=== PATIENT | male | born 1950 | race Caucasian/White ===

== ENCOUNTER 2019-03-05 14:36 | Inpatient (IN) | payer MEDICARE, BC ==
[~2019-03-05] VITALS: Ht 177.8 cm; Wt 113.6 kg
[~2019-03-05 14:36] MED LIST: ADV25050 INH; ADV25050 INHALATION; ALBU8.5H8 INH; AMLO2.5T78 PO; ASC500 PO; ASPI-817 PO; ASPI-903 PO; ATOR40TA68 PO; BENA10TA4 PO; BENA5TAB33 PO; CHOL100062 PO; CHOL200056 PO; CYAN200014 PO; CYAN500T46 PO; FLUT1BLS INH; IPRA3AMP29 INHALATION; LEVA0.634 INHALATION; LEVA15HF6 INH; MESA1.2T PO; MESA1.2T2 PO; METO-335 PO; MONT10TA24 PO; MULT-105 PO; MULT-542 PO; OXYC-279 PO; OXYC1TAB6 PO; PANT40TA3 PO; PANT40TA4 PO; SIMV40TA3 PO; TIOT18CA INH; UMEC62.5 IH
[2019-03-05 14:45] VITALS: Ht 177.8 cm; Wt 113.6 kg
[2019-03-05] MEDS ORDERED: ALBUTEROL 0.083% (NEB) 2.5 MG/3 ML AMP HHN STA (15:55)
[2019-03-05] MEDS ORDERED: METHYLPREDNISOLONE 125 MG INJ IV ONE (16:00)
[2019-03-05] MEDS ORDERED: IPRATROPIUM (NEB) 0.5 MG/2.5 ML AMP INH ONE (16:00)
[2019-03-05] MEDS ORDERED: ACETAMINOPHEN 325 MG TAB PO PRN ×2 (17:30→18:30)
[2019-03-05] MEDS ORDERED: ONDANSETRON 4 MG INJ IV PRN ×2 (17:30→18:30)
--- NOTE | 2019-03-05 17:44 | ERD ---
ER Documentation Chief Complaint Chief Complaint sent by pcp - productive cough with whitish thick sputum; low saturation HPI Patient is a 69-year-old male with coronary disease and COPD who presents for COPD exacerbation. The patient was sent by Dr. Pang his print project manager for admission. The patient was seen in the office today and had an oxygen saturation of 87%. He was wheezing. He does not use home oxygen. Symptoms started on February 11 after a viral infection which is gotten worse. The patient has shortness of breath and cough. His was sick as well previously. Upon review of old medical records the patient one previous visit to the ER on April 2017. Dr. Vasquez is his primary doctor. ROS All systems reviewed and are negative except as per history of present illness. Medications Home Meds Reported Medications Cholecalciferol (Vitamin D3) (Vitamin D-3) 2,000 Unit Tablet, 4000 UNIT PO Q NOON, TAB 03/05/19 Ascorbic Acid (Vitamin C) 500 Mg Tab, 1000 MG PO QAM, TAB 03/05/19 Cyanocobalamin (Vitamin B-12) (Vitamin B-12) 2,000 Mcg Tablet, 2000 MCG PO QAM, TAB 03/05/19 Metoprolol Succinate* (Toprol XL*) 25 Mg Tab.sr.24h, 25 MG PO QHS, #30 TAB 03/05/19 Montelukast Sodium* (Montelukast Sodium*) 10 Mg Tablet, 10 MG PO QHS, #30 TAB 03/05/19 Levalbuterol Hcl* (Levalbuterol Hcl*) 0.63 Mg/3 Ml Vial.neb, 0.63 MG INHALATION Q8, VIAL 03/05/19 Pantoprazole* (Protonix*) 40 Mg Tablet.dr, 40 MG PO DAILY, TAB 03/05/19 Oxycodone HCl/Acetaminophen (Percocet 5-325 mg Tablet) 1 Each Tablet, 0.5 TAB PO BID, TAB 03/05/19 Multivitamin with Minerals (Multivitamins with Minerals) 1 Each Tablet, 1 EACH PO QAM, TAB 03/05/19 Benazepril Hcl* (Benazepril Hcl*) 10 Mg Tablet, 10 MG PO DAILY, #30 TAB 03/05/19 Atorvastatin* (Atorvastatin*) 40 Mg Tablet, 40 MG PO QHS, #30 TAB 03/05/19 Mesalamine (Lialda) 1.2 Gm Tablet.dr, 1.2 GM PO WITH MEALS 03/05/19 Ipratropium-Albuterol (Ipratropium-Albuterol) 0.5-3 Mg/3 Ml Ampul.neb, 3 ML INHA LATION Q8H, #30 VIAL 03/05/19 Umeclidinium [place] (Incruse Ellipta) 62.5 Mcg Blst.w.dev, 62.5 MCG IH QHS 03/05/19 Aspirin* (Aspirin* EC) 81 Mg Tablet.dr, 81 MG PO DAILY, TAB 03/05/19 Salmeterol Xinaf/Fluticasone* (Advair*) 250-50 Diskus Inhaler, 1 INH INHALATION BID, #1 INHALER 03/05/19 Discontinued Reported Medications Levalbuterol Hcl* (Levalbuterol Hcl*) 0.63 Mg/3 Ml Vial.neb, 0.63 MG INHALATION Q8 PRN for WHEEZING AND SOB, VIAL 04/18/17 Ascorbic Acid (Vitamin C) 500 Mg Tab, 1000 MG PO QAM, TAB 04/18/17 Cholecalciferol* (Vitamin D3*) 1,000 Unit Tablet, 2000 UNIT PO DAILY, TAB 04/18/17 Cyanocobalamin* (Vitamin B12*) 500 Mcg Tab, 500 MCG PO DAILY, TAB 04/18/17 Metoprolol Succinate* (Toprol XL*) 25 Mg Tab.sr.24h, 25 MG PO DAILY, #30 TAB 04/18/17 Montelukast Sodium* (Montelukast Sodium*) 10 Mg Tablet, 10 MG PO QHS, #30 TAB 04/18/17 Albuterol Sulfate* (Proair HFA*) 8.5 Gm Hfa.aer.ad, 2 PUFF INH Q6H PRN for WHEEZING AND SOB, #1 INHALER 04/18/17 Pantoprazole* (Protonix*) 40 Mg Tablet.dr, 40 MG PO AC BREAKFAST, TAB 04/18/17 Oxycodone Hcl-Acetaminophen* (Oxycodone Hcl-Acetaminophen*) 2.5-325 Mg Tablet, 1 TAB PO BID PRN for SEVERE PAIN LEVEL 7-10, TAB 04/18/17 Multivitamin* (Daily Value*) 1 Each Tablet, 1 TAB PO DAILY, TAB 04/18/17 Benazepril Hcl* (Benazepril Hcl*) 5 Mg Tablet, 5 MG PO DAILY, #30 TAB 04/18/17 Atorvastatin* (Atorvastatin*) 40 Mg Tablet, 40 MG PO QHS, #30 TAB 04/18/17 Mesalamine (Lialda) 1.2 Gm Tablet.dr, 1.2 GM PO AC MEALS AND BEDTIME 04/18/17 Aspirin* (Aspirin* EC) 81 Mg Tablet.dr, 81 MG PO DAILY, TAB 04/18/17 Salmeterol Xinaf/Fluticasone* (Advair*) 250-50 Diskus Inhaler, 1 INH INHALATION BID, #1 INHALER 04/18/17 Allergies Allergies: Coded Allergies: No Known Allergy (Unverified , 03/05/19) PMhx/Soc History of Surgery: Yes (STENTS;EX LAP WITH ASTOMISIS OF COLON;COLYCEYECTOMY;) Anesthesia Reaction: No Hx Neurological Disorder: No Hx Respiratory Disorders: Yes (COPD) Hx Cardiac Disorders: Yes (STENTS) Hx Psychiatric Problems: No Hx Miscellaneous Medical Probl: No Hx Alcohol Use: Yes Hx Substance Use: No Hx Tobacco Use: Yes Smoking Status: Light tobacco smoker FmHx Family History: diabetes Physical Exam Vitals Vital Signs Date Temp Pulse Resp B/P (MAP) Pulse Ox O2 O2 Flow FiO2 Time Delivery Rate 03/05/19 72 19 127/93 98 Nasal 2.0 17:04 (104) Cannula 03/05/19 65 19 Nasal 2.0 96 16:22 Cannula 03/05/19 Nasal 2 16:10 Cannula 03/05/19 97.9 75 28 119/75 92 14:45 (90) Physical Exam Const: No acute distress Head: Atraumatic Eyes: Normal Conjunctiva ENT: Normal External Ears, Nose and Mouth. Neck: Full range of motion. No meningismus. Resp: Diffuse expiratory wheezing Cardio: Regular rate and rhythm, no murmurs Abd: Soft, non tender, non distended. Normal bowel sounds Skin: No petechiae or rashes Back: No midline or flank tenderness Ext: No cyanosis, or edema Neur: Awake and alert Psych: Normal Mood and Affect Result Diagram: 03/05/19 1606 03/05/19 1606 Results 24 hrs Laboratory Tests Test 03/05/19 16:06 03/05/19 16:08 White Blood Count 6.0 10^3/ul Red Blood Count 4.82 10^6/ul Hemoglobin 14.9 g/dl Hematocrit 46.7 % Mean Corpuscular Volume 96.9 fl Mean Corpuscular Hemoglobin 30.9 pg Mean Corpuscular Hemoglobin Concent 31.9 g/dl Red Cell Distribution Width 13.1 % Platelet Count 187 10^3/UL Mean Platelet Volume 10.5 fl Immature Granulocytes % 0.500 % Neutrophils % 61.8 % Lymphocytes % 20.1 % Monocytes % 12.3 % Eosinophils % 4.3 % Basophils % 1.0 % Nucleated Red Blood Cells % 0.0 /100WBC Immature Granulocytes # 0.030 10^3/ul Neutrophils # 3.7 10^3/ul Lymphocytes # 1.2 10^3/ul Monocytes # 0.7 10^3/ul Eosinophils # 0.3 10^3/ul Basophils # 0.1 10^3/ul Nucleated Red Blood Cells # 0.0 10^3/ul Sodium Level 141 mmol/L Potassium Level 5.1 mmol/L Chloride Level 100 mmol/L Carbon Dioxide Level 34 mmol/L Anion Gap 7 Blood Urea Nitrogen 20 mg/dl Creatinine 0.84 mg/dl Est Glomerular Filtrat Rate mL/min > 60 mL/min Glucose Level 98 mg/dl Calcium Level 9.1 mg/dl POC Venous Lactate 1.2 mmol/L Current Medications Medications Dose Sig/Claudette Start Time Status Last (Trade) Ordered Route PRN Stop Time Admin Dose Reason Admin Albuterol 5 mg ONCE STAT 03/05/19 DC 03/05/19 (Proventil HHN 15:55 03/05/19 16:21 0.083% (Neb)) 15:56 Ipratropium 0.5 mg ONCE ONCE 03/05/19 DC 03/05/19 [place] INH 16:00 03/05/19 16:22 (Atrovent 16:01 0.02% (Neb)) 125 mg ONCE ONCE 03/05/19 DC 03/05/19 Methylprednis IV 16:00 03/05/19 16:17 olone Sodium 16:01 Succinate (Solu-Medrol) Ondansetron 4 mg BRIDGE ORDER 03/05/19 HCl (Zofran PRN IV 17:30 03/06/19 Inj) NAUSEA/VOMITI 17:29 NG 650 mg ER BRIDGE 03/05/19 Acetaminophen PRN PO 17:30 03/06/19 (Tylenol .MILD PAIN 17:29 Tab) 1-3 OR TEMP Procedures/MDM Chest x-ray read by radiology. Patient is a 69-year-old male presents with acute hypoxia with shortness of breath. He has respiratory failure and is requiring supplemental oxygen. Patient will be admitted to the care of Dr. Carmona who is covering for Dr. Vasquez. The patient has no sign of pneumonia or pneumothorax at this time. He was given albuterol, Atrovent, and Solu-Medrol. Critical Care: Time: 35 minutes excluding all billable procedures. Treatments/Evaluations: Close monitoring and treatment of unstable vital signs, cardiorespiratory, and neurologic status, while maintaining tight balance of fluid, respiratory, and cardiac interventions. Departure Diagnosis: Primary Impression: Hypoxia Additional Impressions: Respiratory failure Chronicity: acute Respiratory failure complication: hypoxia Qualified Codes: J96.01 - Acute respiratory failure with hypoxia COPD exacerbation Condition: Serious ELAINE HANDLEY MD Mar 05, 2019 17:44
[2019-03-05] MEDS ORDERED: MAGNESIUM HYDROXIDE 30ML CUP PO PRN (18:30)
[2019-03-05] MEDS ORDERED: ZOLPIDEM 5 MG TAB PO PRN (18:30)
[2019-03-05] MEDS ORDERED: NACL 0.9% 3 ML SYG IV SCH (18:30)
[2019-03-05] MEDS: ACETYLCYSTEINE 20% 4 ML VIAL NEB SCH (20:00)
[2019-03-05] MEDS: ALBUTEROL/IPRATROPIUM (NEB) 3 ML AMP NEB SCH (20:34)
[2019-03-05] MEDS: ATORVASTATIN 40 MG TAB PO SCH (21:00)
[2019-03-05] MEDS: FAMOTIDINE 20 MG INJ IV SCH (21:00)
[2019-03-05] MEDS: MONTELUKAST 10 MG TAB PO SCH (21:52)
[2019-03-05] MEDS: METOPROLOL (XL) 25 MG TAB PO SCH (21:55)
[2019-03-06] MEDS ORDERED: ALBUTEROL/IPRATROPIUM (NEB) 3 ML AMP HHN STA (02:35)
[2019-03-06] MEDS: ACETYLCYSTEINE 20% 4 ML VIAL NEB SCH ×4 (02:52→21:28)
[2019-03-06] MEDS: ALBUTEROL/IPRATROPIUM (NEB) 3 ML AMP NEB SCH ×4 (08:15→21:28)
[2019-03-06] MEDS: MESALAMINE (EC) 400 MG CAP PO SCH ×3 (09:30→17:52)
[2019-03-06] MEDS: predniSONE 20 MG TAB PO SCH (10:22)
[2019-03-06] MEDS: ASCORBIC ACID 500 MG TAB PO SCH (10:23)
[2019-03-06] MEDS: CYANOCOBALAMIN 500 MCG TAB PO SCH (10:23)
[2019-03-06] MEDS: MULTIVITAMINS/MINERALS TAB PO SCH (10:23)
[2019-03-06] MEDS: CEFTRIAXONE 1 GM/50 ML (PMX) 50 ML IVPB SCH (10:24)
[2019-03-06] MEDS: BENAZEPRIL 10 MG TAB PO SCH (10:31)
[2019-03-06] MEDS: FAMOTIDINE 20 MG INJ IV SCH ×4 (10:43→22:36)
[2019-03-06] MEDS: CHOLECALCIFEROL 2,000 UNIT CAP PO SCH (12:37)
--- NOTE | 2019-03-06 14:21 | HP ---
Date/Time of Note Date/Time of Note DATE: 03/06/19 TIME: 14:04 Assessment/Plan VTE Prophylaxis SCD applied (from Nsg): Yes Pharmacological prophylaxis: other Pharm contraindication: other Lines/Catheters IV Catheter Type (from Nrsg): Saline Lock Central line still needed: No Urinary Cath still in place: No Assessment/Plan Problems: (1) COPD exacerbation Status: Acute Comment: Bronchodilators via nebulizer, mucolytic, corticosteroid, antibiotics and O2. Pulmonology consultation (2) Hypoxia Status: Acute Comment: O2 by ME for now maintain saturation greater than 90 (3) Bilateral lower extremity edema Status: Acute Comment: Probable CHF component. 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 Result Diagram: 03/06/19 0556 03/06/19 0556 Results 24hrs Laboratory Tests Test 03/05/19 16:06 03/05/19 16:08 03/05/19 21:11 03/05/19 23:50 White Blood Count 6.0 Red Blood Count 4.82 Hemoglobin 14.9 Hematocrit 46.7 Mean Corpuscular Volume 96.9 Mean Corpuscular 30.9 Hemoglobin Mean Corpuscular 31.9 L Hemoglobin Concent Red Cell Distribution 13.1 Width Platelet Count 187 Mean Platelet Volume 10.5 H Immature Granulocytes % 0.500 H Neutrophils % 61.8 Lymphocytes % 20.1 Monocytes % 12.3 H Eosinophils % 4.3 Basophils % 1.0 Nucleated Red Blood 0.0 Cells % Immature Granulocytes # 0.030 Neutrophils # 3.7 Lymphocytes # 1.2 Monocytes # 0.7 Eosinophils # 0.3 Basophils # 0.1 Nucleated Red Blood 0.0 Cells # Sodium Level 141 Potassium Level 5.1 Chloride Level 100 Carbon Dioxide Level 34 H Anion Gap 7 Blood Urea Nitrogen 20 Creatinine 0.84 Est Glomerular Filtrat > 60 Rate mL/min Glucose Level 98 Calcium Level 9.1 POC Venous Lactate 1.2 Lactic Acid Level 1.9 0.8 Test 03/06/19 05:51 03/06/19 05:56 Procalcitonin 0.05 White Blood Count 7.1 Red Blood Count 5.05 Hemoglobin 15.5 Hematocrit 49.1 Mean Corpuscular Volume 97.2 Mean Corpuscular 30.7 Hemoglobin Mean Corpuscular 31.6 L Hemoglobin Concent Red Cell Distribution 13.1 Width Platelet Count 175 Mean Platelet Volume 10.5 H Immature Granulocytes % 0.400 Neutrophils % 89.1 H Lymphocytes % 7.6 L Monocytes % 2.8 Eosinophils % 0.0 Basophils % 0.1 Nucleated Red Blood 0.0 Cells % Immature Granulocytes # 0.030 Neutrophils # 6.3 Lymphocytes # 0.5 L Monocytes # 0.2 L Eosinophils # 0.0 Basophils # 0.0 Nucleated Red Blood 0.0 Cells # Sodium Level 139 Potassium Level 5.2 H Chloride Level 100 Carbon Dioxide Level 32 H Anion Gap 7 Blood Urea Nitrogen 25 H Creatinine 0.83 Est Glomerular Filtrat > 60 Rate mL/min Glucose Level 132 Calcium Level 9.2 Total Bilirubin 0.8 Direct Bilirubin 0.00 Indirect Bilirubin 0.8 Aspartate Amino 32 Transf (AST/SGOT) Alanine 37 Aminotransferase (ALT/SG PT) Alkaline Phosphatase 73 Total Protein 7.1 Albumin 4.2 Globulin 2.90 Albumin/Globulin Ratio 1.44 HPI/ROS Admit Date/Time Admit Date/Time March 05, 2019 Hx of Present Illness 69 year old man with length history of tobacco use and who currently continues t o smoke was sent by certified drug counselor to [facility] for admission due to hypoxia. Patient states symptoms began mid January after returned home from a camping trip with an upper respiratory infection. Patient began to notice increased clear sputum production coughing and inability to lie supine do to increased SOB. As a result also unable to use CPAP machine. Patient states that at no time did he have feve r.Patient was treated with antibiotics (azithromycin) without improvement. He became increasingly more uncomfortable and went to see Dr. Pang. In the office of the certified drug counselor O2 saturations were in the mid to high 80s. Dr. Pang recommended he be admitted for further management. ROS Constitutional: fatigue Eyes: no complaints ENT: other ("something at the back of my throat") Respiratory: cough, sputum, wheezing Cardiovascular: edema (bilateral lower extremities) Gastrointestinal: no complaints Genitourinary: no complaints Musculoskeletal: no complaints Skin: no complaints Neurologic: no complaints Endocrine: no complaints Lymphatic: no complaints Psychological: other PMH/Family/Social Past Medical History Medical History: coronary artery disease, GERD, hypertension, other (COPD Chrons Disease) Medications Current Medications Albuterol/ Ipratropium (Duoneb) 3 ml Q4HWA RESP THERAPY NEB Last administered on 03/06/19at 12:44; Admin Dose 3 ML; Start 03/05/19 at 21:00 Acetylcysteine (Mucomyst) 1.5 ml Q6H RESP THERAPY NEB Last administered on 03/06/19 12:56; Admin Dose 1.5 ML; Start 03/05/19 at 20:00 Prednisone (Prednisone) 40 mg DAILY PO Last administered on 03/06/19 10:22; Admin Dose 40 MG; Start 03/06/19 at 09:00; Stop 03/16/19 at 09:00 Ceftriaxone Sodium 50 ml @ 100 mls/hr Q24H IVPB Last administered on 03/06/19 10:24; Admin Dose 100 MLS/HR; Start 03/06/19 at 09:00 IV Flush (NS 3 ml) 3 ml PER PROTOCOL IV ; Start 03/05/19 at 18:30 Ondansetron HCl (Zofran Inj) 4 mg Q6H PRN IV NAUSEA/VOMITING; Start 03/05/19 at 18:30 Acetaminophen (Tylenol Tab) 650 mg Q6H PRN PO .PAIN 1-3 OR TEMP; Start 03/05/19 at 18:30 Magnesium Hydroxide (Milk Of Mag) 30 ml DAILY PRN PO .CONSTIPATION; Start 03/05/19 at 18:30 Zolpidem Tartrate (Ambien) 5 mg QHS PRN PO .INSOMNIA; Start 03/05/19 at 18:30 Famotidine (Pepcid Iv) 20 mg Q12 IV Last administered on 03/05/19 21:00; Admin Dose 20 MG; Start 03/05/19 at 21:00 Ascorbic Acid (Vitamin C) 1,000 mg QAM PO Last administered on 03/06/19 10:23; Admin Dose 1,000 MG; Start 03/06/19 at 09:00 Atorvastatin Calcium (Lipitor) 40 mg QHS PO ; Start 03/05/19 at 21:00 Benazepril HCl (Lotensin) 10 mg DAILY PO Last administered on 03/06/19 10:31; Admin Dose 10 MG; Start 03/06/19 at 09:00 Metoprolol Succinate (Toprol Xl) 25 mg QHS PO Last administered on 03/05/19 21:55; Admin Dose 25 MG; Start 03/05/19 at 21:00 Montelukast Sodium (Singulair) 10 mg QHS PO Last administered on 03/05/19 21:52; Admin Dose 10 MG; Start 03/05/19 at 21:00 Cholecalciferol (Vitamin D) 4,000 unit DAILY@1200 PO Last administered on 03/06/19 12:37; Admin Dose 4,000 UNIT; Start 03/06/19 at 12:00 Cyanocobalamin (Vitamin B12) 2,000 mcg QAM PO Last administered on 03/06/19 10:23; Admin Dose 2,000 MCG; Start 03/06/19 at 09:00 Mesalamine (Delzicol Dr) 1,200 mg WITH MEALS PO Last administered on 03/06/19 12:37; Admin Dose 1,200 MG; Start 03/06/19 at 09:30 Multivitamins/ Minerals (Theragran-M) 1 tab QAM PO Last administered on 03/06/19 10:23; Admin Dose 1 TAB; Start 03/06/19 at 09:00 Albuterol/ Ipratropium (Duoneb) 3 ml Q4H WHILE AWAKE PRN HHN SHORTNESS OF BREATH; Start 03/06/19 at 05:00 Coded Allergies: iodine (Verified Allergy, Unknown, 08/31/14) Uncoded Allergies: SHRIMP (Allergy, Unknown, 08/31/14) Past Surgical History Past Surgical Hx: bowel resection, coronary bypass surgery Family History Significant Family History: heart disease, hypertension Social History Alcohol Use: none Smoking Status: Current every day smoker Drug Use: none Exam/Review of Systems Vital Signs Vitals Vital Signs Date Temp Pulse Resp B/P (MAP) Pulse Ox O2 O2 Flow FiO2 Time Delivery Rate 03/06/19 68 20 94 Nasal 4.0 12:45 Cannula 03/06/19 97.9 122/89 10:30 (100) 03/05/19 96 16:22 Exam Exam Speaks in full sentences Constitutional: alert, oriented, distress (non), other Psych: other (Angry) Head: normocephalic Eyes: EOMI, PERRL ENMT: nl external ears & nose, other (NG tube in place) Neck: supple Respiratory: crackles/rales (dry), wheezing Cardiovascular: regular rate and rhythm Gastrointestinal: soft Extremities: normal pulses, edema (3 plus bilateral) Neurological: nl mental status, other (grossly in tact) NICK NEIL MD Mar 06, 2019 14:15
--- NOTE | 2019-03-06 15:53 | QN ---
Documentation Comment Bottle #1 blood cultures positive for gram positive clusters. Given normal clinical and biochemical parameters (CXR, afebrile, low procalcitonin, leukocyte count) suspect this is a contamination and have low suspicion for infectious cause. There is a second blood culture bottle still pending. Will discontinue antibiotics once results posted. NICK NEIL MD Mar 06, 2019 15:53
--- NOTE | 2019-03-06 16:00 | CONS ---
DATE OF ADMISSION: 03/05/2019 DATE OF CONSULTATION: TYPE OF CONSULTATION: Pulmonary. REASON FOR CONSULTATION: Shortness of breath. Thank you, Dr. Vasquez, for this consultation. HISTORY OF PRESENT ILLNESS: A 69-year-old gentleman with known history of COPD on home O2 followed michael Pang in his office was seen yesterday with a 2-day history of increasing cough, congestion and respiratory distress. Subsequently, he requested to be brought to the emergency room for further ev aluation. The patient states his breathing is better this morning following admission yesterday. De nies any recent travel history. No hemoptysis, hematemesis. PAST MEDICAL HISTORY: 1. COPD. 2. Hypertension. 3. Hyperlipidemia. MEDICATIONS: Per chart. ALLERGIES: IODINE. SOCIAL HISTORY: Ex-smoker, no alcohol, no history of drug use. FAMILY HISTORY: Noncontributory. SYSTEMS REVIEW: A 12-point review of systems was negative other than mentioned above. PHYSICAL EXAMINATION: GENERAL: Well-nourished, well-developed gentleman, comfortable at rest, talking in full and complete sentences. VITAL SIGNS: Currently afebrile, pulse is 66, blood pressure 144/79, O2 saturation 96% on 4 liters. NECK: Supple. No JVD or lymphadenopathy. CARDIAC: S1, S2. No added sounds or murmurs. CHEST: Diminished air entry bilaterally with few rales. ABDOMEN: Soft, nontender. No guarding or rebound. EXTREMITIES: No cyanosis, clubbing, 1+ edema. NEUROLOGIC: Grossly intact. No focal deficits. LABORATORY DATA: White count 7.1, hemoglobin 15.5, platelets of 175. Potassium 5.2, BUN 25, creatin ine 0.83. DIAGNOSTIC STUDIES: Chest x-ray showed no infiltrates or effusions, elevated left hemidiaphragm. IMPRESSION: 1. Likely chronic obstructive pulmonary disease exacerbation. 2. Underlying chronic hypoxemic respiratory failure secondary to chronic obstructive pulmonary disea se. The patient will require: 1. Bronchodilators. 2. Short steroid taper. 3. Check procalcitonin level. 4. Consider de-escalation of antibiotics if procalcitonin negative. 5. Outpatient follow up with Dr. Pang. Dictated By: KELY FLETCHER/JANINA Conf#: [id number] DID#: [id number] CC: NICK NEIL MD; ARACELI JACK MD;*[facility]*
[2019-03-06 16:11] VITALS: BP 101/59; PULSE 80; RESP 18
[2019-03-06 20:00] VITALS: BP 127/58; PULSE 84; RESP 19
[2019-03-06] MEDS: MONTELUKAST 10 MG TAB PO SCH (22:28)
[2019-03-06] MEDS: ATORVASTATIN 40 MG TAB PO SCH (22:28)
[2019-03-06] MEDS: METOPROLOL (XL) 25 MG TAB PO SCH (22:29)
[2019-03-07 00:05] VITALS: PULSE 85
[2019-03-07 02:00] VITALS: BP 141/70; PULSE 62; RESP 19
[2019-03-07] MEDS: ACETYLCYSTEINE 20% 4 ML VIAL NEB SCH ×2 (02:11→08:00)
[2019-03-07] MEDS: ALBUTEROL/IPRATROPIUM (NEB) 3 ML AMP HHN PRN (02:11)
[2019-03-07 07:47] VITALS: BP 92/55; PULSE 63; RESP 18
[2019-03-07] MEDS: BENAZEPRIL 10 MG TAB PO SCH (08:32)
[2019-03-07] MEDS: CEFTRIAXONE 1 GM/50 ML (PMX) 50 ML IVPB SCH (08:34)
[2019-03-07] MEDS: CYANOCOBALAMIN 500 MCG TAB PO SCH (08:34)
[2019-03-07] MEDS: predniSONE 20 MG TAB PO SCH (08:34)
[2019-03-07] MEDS: MESALAMINE (EC) 400 MG CAP PO SCH ×3 (08:34→17:35)
[2019-03-07] MEDS: MULTIVITAMINS/MINERALS TAB PO SCH (08:34)
[2019-03-07] MEDS: ASCORBIC ACID 500 MG TAB PO SCH (08:34)
[2019-03-07] MEDS: ALBUTEROL/IPRATROPIUM (NEB) 3 ML AMP NEB SCH ×4 (08:48→19:58)
[2019-03-07] MEDS: FAMOTIDINE 20 MG TAB PO SCH ×2 (12:41→20:09)
[2019-03-07] MEDS: CHOLECALCIFEROL 2,000 UNIT CAP PO SCH (12:41)
[2019-03-07 14:03] VITALS: BP 101/67; PULSE 64; RESP 16
[2019-03-07] MEDS ORDERED: VANCOMYCIN 1 GM (PMX) 250 ML IVPB SCH (15:00)
--- NOTE | 2019-03-07 15:28 | CONS ---
Consult Date/Type/Reason Admit Date/Time Mar 05, 2019 at 17:20 Initial Consult Date Type of Consult Pulmonary Date/Time of Note DATE: 03/07/19 TIME: 15:25 Subjective Increasing cough and bronchospasm with Mucomyst nebulizer Patient also states he had CT neck requested by ENT for evaluation of possible polyp Objective Vital Signs Date Temp Pulse Resp B/P (MAP) Pulse Ox O2 O2 Flow FiO2 Time Delivery Rate 03/07/19 98.4 64 16 101/67 99 14:03 (78) 03/07/19 Nasal 2.0 10:41 Cannula 03/07/19 35 00:05 Intake and Output 03/06/19 03/06/19 03/07/19 1515:00 23:00 07:00 IntakeIntake Total 240 ml BalanceBalance 240 ml Exam PHYSICAL EXAMINATION: GENERAL: Well-nourished, well-developed gentleman, comfortable at rest, talking in full and complete sentences. VITAL SIGNS: NECK: Supple. No JVD or lymphadenopathy. CARDIAC: S1, S2. No added sounds or murmurs. CHEST: Diminished air entry bilaterally with few rales. ABDOMEN: Soft, nontender. No guarding or rebound. EXTREMITIES: No cyanosis, clubbing, 1+ edema. NEUROLOGIC: Grossly intact. No focal deficits. Vent Setting Fraction of Inspired Oxygen pe: 96 Results/Medications Result Diagram: 03/07/19 0517 03/07/19 0517 Results 24 hrs Laboratory Tests Test 03/07/19 05:17 White Blood Count 10.0 # Red Blood Count 4.58 L Hemoglobin 14.1 Hematocrit 44.4 Mean Corpuscular Volume 96.9 Mean Corpuscular Hemoglobin 30.8 Mean Corpuscular Hemoglobin Concent 31.8 L Red Cell Distribution Width 13.0 Platelet Count 188 Mean Platelet Volume 10.7 H Immature Granulocytes % 0.300 Neutrophils % 75.9 Lymphocytes % 13.3 L Monocytes % 10.0 Eosinophils % 0.2 Basophils % 0.3 Nucleated Red Blood Cells % 0.0 Immature Granulocytes # 0.030 Neutrophils # 7.6 H Lymphocytes # 1.3 Monocytes # 1.0 H Eosinophils # 0.0 Basophils # 0.0 Nucleated Red Blood Cells # 0.0 Sodium Level 137 Potassium Level 4.6 Chloride Level 97 Carbon Dioxide Level 35 H Anion Gap 5 Blood Urea Nitrogen 39 #H Creatinine 0.99 Est Glomerular Filtrat Rate mL/min > 60 Glucose Level 115 Calcium Level 9.1 Phosphorus Level 4.0 Magnesium Level 2.1 Medications Current Medications Albuterol/ Ipratropium (Duoneb) 3 ml Q4HWA RESP THERAPY NEB Last administered on 03/06/19 21:28; Admin Dose 3 ML; Start 03/05/19 at 21:00 Acetylcysteine (Mucomyst) 1.5 ml Q6H RESP THERAPY NEB Last administered on 02:11; Admin Dose 1.5 ML; Start 03/05/19 at 20:00 Prednisone (Prednisone) 40 mg DAILY PO Last administered on 03/07/19 08:34; Admin Dose 40 MG; Start 03/06/19 at 09:00; Stop 03/16/19 at 09:00 IV Flush (NS 3 ml) 3 ml PER PROTOCOL IV ; Start 03/05/19 at 18:30 Ondansetron HCl (Zofran Inj) 4 mg Q6H PRN IV NAUSEA/VOMITING; Start 03/05/19 at 18:30 Acetaminophen (Tylenol Tab) 650 mg Q6H PRN PO .PAIN 1-3 OR TEMP; Start 03/05/19 at 18:30 Magnesium Hydroxide (Milk Of Mag) 30 ml DAILY PRN PO .CONSTIPATION; Start 03/05/19 at 18:30 Zolpidem Tartrate (Ambien) 5 mg QHS PRN PO .INSOMNIA; Start 03/05/19 at 18:30 Ascorbic Acid (Vitamin C) 1,000 mg QAM PO Last administered on 03/07/19 08:34; Admin Dose 1,000 MG; Start 03/06/19 at 09:00 Atorvastatin Calcium (Lipitor) 40 mg QHS PO Last administered on 03/06/19 22:28; Admin Dose 40 MG; Start 03/05/19 at 21:00 Benazepril HCl (Lotensin) 10 mg DAILY PO Last administered on 03/06/19 10:31; Admin Dose 10 MG; Start 03/06/19 at 09:00 Metoprolol Succinate (Toprol Xl) 25 mg QHS PO Last administered on 03/06/19at 22:29; Admin Dose 25 MG; Start 03/05/19 at 21:00 Montelukast Sodium (Singulair) 10 mg QHS PO Last administered on 03/06/19 22:28; Admin Dose 10 MG; Start 03/05/19 at 21:00 Cholecalciferol (Vitamin D) 4,000 unit DAILY@1200 PO Last administered on 12:41; Admin Dose 4,000 UNIT; Start 03/06/19 at 12:00 Cyanocobalamin (Vitamin B12) 2,000 mcg QAM PO Last administered on 03/07/19 08:34; Admin Dose 2,000 MCG; Start 03/06/19 at 09:00 Mesalamine (Delzicol Dr) 1,200 mg WITH MEALS PO Last administered on 03/07/19 12:41; Admin Dose 1,200 MG; Start 03/06/19 at 09:30 Multivitamins/ Minerals (Theragran-M) 1 tab QAM PO Last administered on 03/07/19 at 08:34; Admin Dose 1 TAB; Start 03/06/19 at 09:00 Albuterol/ Ipratropium (Duoneb) 3 ml Q4H WHILE AWAKE PRN HHN SHORTNESS OF BREATH Last administered on 03/07/19at 02:11; Admin Dose 3 ML; Start 03/06/19 at 05:00 Famotidine (Pepcid) 20 mg BID PO Last administered on 03/07/19 12:41; Admin Dose 20 MG; Start 03/07/19 at 11:00 Vancomycin HCl 250 ml @ 125 mls/hr Q24H IVPB ; Start 03/07/19 at 15:00; Status UNV Vancomycin HCl 2 gm/Sodium Chloride 500 ml @ 125 mls/hr ONCE ONCE IVPB ; Start 03/07/19 at 17:00; Stop 03/07/19 at 20:59 Assessment/Plan Hospital Course (Demo Recall) IMPRESSION: 1. Likely chronic obstructive pulmonary disease exacerbation. 2. Underlying chronic hypoxemic respiratory failure secondary to chronic obstructive pulmonary disease. 3. Possible polyp in posterior pharynx Plan 1. Bronchodilators. 2. Short steroid taper. Change to IV steroids 3. DC antibiotics given normal procalcitonin 4. Encourage out of bed 5. DC Mucomyst nebulizer KELY SERVIN MD, [facility] Mar 07, 2019 15:28
--- NOTE | 2019-03-07 15:36 | PN ---
Date/Time of Note Date/Time of Note DATE: 03/07/19 TIME: 15:31 Assessment/Plan VTE Prophylaxis [place] [facility] [place] risk: 4 SCD applied [place] [facility] [place] Yes SCD contraindicated: patient refusal Pharmacological prophylaxis: other Pharm contraindication: other Lines/Catheters IV Catheter Type (from [facility]): Saline Lock [place] line still needed: No Urinary Cath still in place: No Assessment/Plan Problems: (1) COPD exacerbation Status: Acute Comment: Continue Nebulizations with bronchodilators and steroids. Antibiotics discontinued (2) Hypoxia Status: Acute Comment: Saturations above 92% with O2 by nasal canula (3) Bilateral lower extremity edema Status: Acute Comment: Likely secondary to right heart failure (4) Tongue mass Comment: MRI with contrast per ENT Result Diagram: 03/07/1917 03/07/19 0517 Results 24hrs Laboratory Tests Test 03/07/19 05:17 White Blood Count 10.0 # Red Blood Count 4.58 L Hemoglobin 14.1 Hematocrit 44.4 Mean Corpuscular Volume 96.9 Mean Corpuscular Hemoglobin 30.8 Mean Corpuscular Hemoglobin Concent 31.8 L Red Cell Distribution Width 13.0 Platelet Count 188 Mean Platelet Volume 10.7 H Immature Granulocytes % 0.300 Neutrophils % 75.9 Lymphocytes % 13.3 L Monocytes % 10.0 Eosinophils % 0.2 Basophils % 0.3 Nucleated Red Blood Cells % 0.0 Immature Granulocytes # 0.030 Neutrophils # 7.6 H Lymphocytes # 1.3 Monocytes # 1.0 H Eosinophils # 0.0 Basophils # 0.0 Nucleated Red Blood Cells # 0.0 Sodium Level 137 Potassium Level 4.6 Chloride Level 97 Carbon Dioxide Level 35 H Anion Gap 5 Blood Urea Nitrogen 39 #H Creatinine 0.99 Est Glomerular Filtrat Rate mL/min > 60 Glucose Level 115 Calcium Level 9.1 Phosphorus Level 4.0 Magnesium Level 2.1 Subjective 24 Hr Interval Summary Free Text/Dictation Irritable and angry still requiring oxygen Exam/Review of Systems Exam Vitals Vital Signs Date Temp Pulse Resp B/P (MAP) Pulse Ox O2 O2 Flow FiO2 Time Delivery Rate 03/07/19 98.4 64 16 101/67 99 14:03 (78) 03/07/19 Nasal 2.0 10:41 Cannula 03/07/19 35 00:05 Intake and Output 03/06/19 03/06/1903/07/19 1515:00 23:00 07:00 IntakeIntake Total 240 ml BalanceBalance 240 ml Constitutional: alert, oriented, distress (none) Neck: supple Respiratory: wheezing Cardiovascular: regular rate and rhythm Gastrointestinal: soft Musculoskeletal: swelling Results Results 24hrs Laboratory Tests Test 03/07/19 05:17 White Blood Count 10.0 # Red Blood Count 4.58 L Hemoglobin 14.1 Hematocrit 44.4 Mean Corpuscular Volume 96.9 Mean Corpuscular Hemoglobin 30.8 Mean Corpuscular Hemoglobin Concent 31.8 L Red Cell Distribution Width 13.0 Platelet Count 188 Mean Platelet Volume 10.7 H Immature Granulocytes % 0.300 Neutrophils % 75.9 Lymphocytes % 13.3 L Monocytes % 10.0 Eosinophils % 0.2 Basophils % 0.3 Nucleated Red Blood Cells % 0.0 Immature Granulocytes # 0.030 Neutrophils # 7.6 H Lymphocytes # 1.3 Monocytes # 1.0 H Eosinophils # 0.0 Basophils # 0.0 Nucleated Red Blood Cells # 0.0 Sodium Level 137 Potassium Level 4.6 Chloride Level 97 Carbon Dioxide Level 35 H Anion Gap 5 Blood Urea Nitrogen 39 #H Creatinine 0.99 Est Glomerular Filtrat Rate mL/min > 60 Glucose Level 115 Calcium Level 9.1 Phosphorus Level 4.0 Magnesium Level 2.1 Medications Medication Current Medications Albuterol/ Ipratropium (Duoneb) 3 ml Q4HWA RESP THERAPY NEB Last administered on 03/07/19at 15:28; Admin Dose 3 ML; Start 03/05/19 at 21:00 IV Flush (NS 3 ml) 3 ml PER PROTOCOL IV ; Start 03/05/19 at 18:30 Ondansetron HCl (Zofran Inj) 4 mg Q6H PRN IV NAUSEA/VOMITING; Start 03/05/19 at 18:30 Acetaminophen (Tylenol Tab) 650 mg Q6H PRN PO .PAIN 1-3 OR TEMP; Start 03/05/19 at 18:30 Magnesium Hydroxide (Milk Of Mag) 30 ml DAILY PRN PO .CONSTIPATION; Start at 18:30 Zolpidem Tartrate (Ambien) 5 mg QHS PRN PO .INSOMNIA; Start 03/05/19 at 18:30 Ascorbic Acid (Vitamin C) 1,000 mg QAM PO Last administered on 03/07/19 08:34; Admin Dose 1,000 MG; Start 03/06/19 at 09:00 Atorvastatin Calcium (Lipitor) 40 mg QHS PO Last administered on 03/06/19 22:28; Admin Dose 40 MG; Start 03/05/19 at 21:00 Benazepril HCl (Lotensin) 10 mg DAILY PO Last administered on 03/06/19 10:31; Admin Dose 10 MG; Start 03/06/19 at 09:00 Metoprolol Succinate (Toprol Xl) 25 mg QHS PO Last administered on 03/06/19 22:29; Admin Dose 25 MG; Start 03/05/19 at 21:00 Montelukast Sodium (Singulair) 10 mg QHS PO Last administered on 03/06/19 22:28; Admin Dose 10 MG; Start 03/05/19 at 21:00 Cholecalciferol (Vitamin D) 4,000 unit DAILY@1200 PO Last administered on 03/07/19 12:41; Admin Dose 4,000 UNIT; Start 03/06/19 at 12:00 Cyanocobalamin (Vitamin B12) 2,000 mcg QAM PO Last administered on 03/07/19 08:34; Admin Dose 2,000 MCG; Start 03/06/19 at 09:00 Mesalamine (Delzicol Dr) 1,200 mg WITH MEALS PO Last administered on 03/07/19 12:41; Admin Dose 1,200 MG; Start 03/06/19 at 09:30 Multivitamins/ Minerals (Theragran-M) 1 tab QAM PO Last administered on 03/07/19 08:34; Admin Dose 1 TAB; Start 03/06/19 at 09:00 Albuterol/ Ipratropium (Duoneb) 3 ml Q4H WHILE AWAKE PRN HHN SHORTNESS OF BREATH Last administered on 03/07/19 02:11; Admin Dose 3 ML; Start 03/06/19 at 05:00 Famotidine (Pepcid) 20 mg BID PO Last administered on 03/07/19 12:41; Admin Dose 20 MG; Start 03/07/19 at 11:00 Vancomycin HCl 250 ml @ 125 mls/hr Q24H IVPB ; Start 03/07/19 at 15:00; Status UNV Vancomycin HCl 2 gm/Sodium Chloride 500 ml @ 125 mls/hr ONCE ONCE IVPB ; Start 03/07/19 at 17:00; Stop 03/07/19 at 20:59 Methylprednisolone Sodium Succinate (Solu-Medrol) 40 mg Q8 IV ; Start 03/07/19 at 22:00; Status UNV NICK NEIL MD Mar 07, 2019 15:36
[2019-03-07] MEDS ORDERED: VANCOMYCIN HCL 2 GM in SOD CHLORIDE 0.9% 500 ML IVPB ONE (17:00)
[2019-03-07 19:59] VITALS: BP 122/68; PULSE 83; RESP 16
[2019-03-07] MEDS ORDERED: METHYLPREDNISOLONE 40 MG INJ ONE (20:00)
[2019-03-07] MEDS: MONTELUKAST 10 MG TAB PO SCH (20:09)
[2019-03-07] MEDS: ATORVASTATIN 40 MG TAB PO SCH (20:09)
[2019-03-07] MEDS: METOPROLOL (XL) 25 MG TAB PO SCH (20:10)
[2019-03-07] MEDS ORDERED: METHYLPREDNISOLONE 40 MG INJ IV SCH (22:00)
[2019-03-08] MEDS: METHYLPREDNISOLONE 40 MG INJ IV SCH ×3 (00:30→16:41)
[2019-03-08] MEDS ORDERED: ACETYLCYSTEINE 20% 4 ML VIAL NEB PRN (00:30)
[2019-03-08] MEDS ORDERED: PROMETHAZINE (1.25 MG/ML) 5 ML CUP PO PRN ×2 (01:00)
[2019-03-08] MEDS: ALBUTEROL/IPRATROPIUM (NEB) 3 ML AMP HHN PRN (01:39)
[2019-03-08 02:16] VITALS: BP 116/58; PULSE 54; RESP 18
[2019-03-08 07:00] VITALS: BP 140/78; PULSE 55; RESP 18
[2019-03-08] MEDS: CYANOCOBALAMIN 500 MCG TAB PO SCH (09:25)
[2019-03-08] MEDS: MESALAMINE (EC) 400 MG CAP PO SCH ×3 (09:25→17:54)
[2019-03-08] MEDS: FAMOTIDINE 20 MG TAB PO SCH ×2 (09:25→20:16)
[2019-03-08] MEDS: MULTIVITAMINS/MINERALS TAB PO SCH (09:26)
[2019-03-08] MEDS: BENAZEPRIL 10 MG TAB PO SCH (09:26)
[2019-03-08] MEDS: ASCORBIC ACID 500 MG TAB PO SCH (09:26)
[2019-03-08] MEDS: ALBUTEROL/IPRATROPIUM (NEB) 3 ML AMP NEB SCH ×4 (09:57→20:42)
--- NOTE | 2019-03-08 12:18 | CONS ---
Consult Date/Type/Reason Admit Date/Time Mar 05, 2019 at 17:20 Initial Consult Date Type of Consult Pulmonary Date/Time of Note DATE: 03/08/19 TIME: 12:17 Subjective Patient slowly improving states his breathing is better today. Requesting frequent nebulizers though. Objective Vital Signs Date Temp Pulse Resp B/P (MAP) Pulse Ox O2 O2 Flow FiO2 Time Delivery Rate 03/08/19 3.0 11:51 03/08/19 77 20 97 Nasal 10:01 Cannula 03/08/19 98.4 140/78 07:00 (98) 03/07/19 35 00:05 Intake and Output 03/07/19 03/07/19 03/08/19 1515:00 23:00 07:00 IntakeIntake Total 1050 ml BalanceBalance 1050 ml Exam PHYSICAL EXAMINATION: GENERAL: Well-nourished, well-developed gentleman, comfortable at rest, talking in full and complete sentences. VITAL SIGNS: NECK: Supple. No JVD or lymphadenopathy. CARDIAC: S1, S2. No added sounds or murmurs. CHEST: Diminished air entry bilaterally with few rales. ABDOMEN: Soft, nontender. No guarding or rebound. EXTREMITIES: No cyanosis, clubbing, 1+ edema. NEUROLOGIC: Grossly intact. No focal deficits. Vent Setting Fraction of Inspired Oxygen pe: 96 Results/Medications Result Diagram: 03/07/19 0517 03/07/19 0517 Medications Current Medications Albuterol/ Ipratropium (Duoneb) 3 ml Q4HWA RESP THERAPY NEB Last administered on 03/08/19at 09:57; Admin Dose 3 ML; Start 03/05/19 at 21:00 IV Flush (NS 3 ml) 3 ml PER PROTOCOL IV ; Start 03/05/19 at 18:30 Ondansetron HCl (Zofran Inj) 4 mg Q6H PRN IV NAUSEA/VOMITING; Start 03/05/19 at 18:30 Acetaminophen (Tylenol Tab) 650 mg Q6H PRN PO .PAIN 1-3 OR TEMP; Start 03/05/19 at 18:30 Magnesium Hydroxide (Milk Of Mag) 30 ml DAILY PRN PO .CONSTIPATION; Start 03/05/19 at 18:30 Zolpidem Tartrate (Ambien) 5 mg QHS PRN PO .INSOMNIA; Start 03/05/19 at 18:30 Ascorbic Acid (Vitamin C) 1,000 mg QAM PO Last administered on 03/08/19 09:26; Admin Dose 1,000 MG; Start 03/06/19 at 09:00 Atorvastatin Calcium (Lipitor) 40 mg QHS PO Last administered on 03/07/19 20:09; Admin Dose 40 MG; Start 03/05/19 at 21:00 Benazepril HCl (Lotensin) 10 mg DAILY PO Last administered on 03/08/19 09:26; Admin Dose 10 MG; Start 03/06/19 at 09:00 Metoprolol Succinate (Toprol Xl) 25 mg QHS PO Last administered on 03/07/19 20:10; Admin Dose 25 MG; Start 03/05/19 at 21:00 Montelukast Sodium (Singulair) 10 mg QHS PO Last administered on 03/07/19 20:09; Admin Dose 10 MG; Start 03/05/19 at 21:00 Cholecalciferol (Vitamin D) 4,000 unit DAILY@1200 PO Last administered on 03/07/19 12:41; Admin Dose 4,000 UNIT; Start 03/06/19 at 12:00 Cyanocobalamin (Vitamin B12) 2,000 mcg QAM PO Last administered on 03/08/19 09:25; Admin Dose 2,000 MCG; Start 03/06/19 at 09:00 Mesalamine (Delzicol Dr) 1,200 mg WITH MEALS PO Last administered on 03/08/19 09:25; Admin Dose 1,200 MG; Start 03/06/19 at 09:30 Multivitamins/ Minerals (Theragran-M) 1 tab QAM PO Last administered on 03/08/19 09:26; Admin Dose 1 TAB; Start 03/06/19 at 09:00 Albuterol/ Ipratropium (Duoneb) 3 ml Q4H WHILE AWAKE PRN HHN SHORTNESS OF BREATH Last administered on 03/08/19 01:39; Admin Dose 3 ML; Start 03/06/19 at 05:00 Famotidine (Pepcid) 20 mg BID PO Last administered on 03/08/19 09:25; Admin Dose 20 MG; Start 03/07/19 at 11:00 Methylprednisolone Sodium Succinate (Solu-Medrol) 40 mg Q8H IV Last administered on 03/08/19at 09:26; Admin Dose 40 MG; Start 03/08/19 at 00:30 Promethazine HCl (Phenergan Liq) 18.75 mg Q6H PRN PO COUGH; Start 03/08/19 at 01:00 Assessment/Plan Hospital Course (Demo Recall) IMPRESSION: 1. Likely chronic obstructive pulmonary disease exacerbation. 2. Underlying chronic hypoxemic respiratory failure secondary to chronic obstructive pulmonary disease. 3. Possible polyp in posterior pharynx, MRI noted Plan 1. Incentive spirometry 2. Short steroid taper. Change to IV steroids 3. Increased frequency of bronchodilators 4. Encourage out of bed 5. Encouraged to ambulate KELY SERVIN MD, [facility] Mar 08, 2019 12:18
[2019-03-08] MEDS: CHOLECALCIFEROL 2,000 UNIT CAP PO SCH (12:40)
[2019-03-08 14:00] VITALS: BP 139/79; PULSE 91
--- NOTE | 2019-03-08 18:24 | PN ---
Date/Time of Note Date/Time of Note DATE: 03/08/19 TIME: 18:18 Assessment/Plan VTE Prophylaxis Risk score (from [facility])>0 risk: 4 SCD applied (from [facility]): Yes SCD contraindicated: low risk/ambulating Pharmacological prophylaxis: NA/contraindicated Pharm contraindication: low risk/ambulating Lines/Catheters IV Catheter Type (from Nrsg): Saline Lock Urinary Cath still in place: No Assessment/Plan Problems: (1) COPD exacerbation Status: Acute Comment: Clinically improving. Stable for discharge home in the morning. (2) Hypoxia Status: Acute Comment: Improved (3) Tongue mass Comment: On MRI noted mild asymmetric enhancement enlargement of the left lingual tonsil/glossotonsillar sulcus suspicious for underlying lesion given history. Patient to follow up with ENT Assessment/Plan Transition to oral steroids in planning for discharge home in AM Result Diagram: 03/07/1951603/07/19516 Subjective 24 Hr Interval Summary Free Text/Dictation Feeling better. Tolerating room air. Able to ambulate around [place] without significant dyspnea. Exam/Review of Systems Exam Vitals Vital Signs Date Temp Pulse Resp B/P (MAP) Pulse Ox O2 O2 Flow FiO2 Time Delivery Rate 03/08/19 72 20 97 Nasal 3.0 17:21 Cannula 03/08/19 98.3 139/79 14:00 (99) 03/07/19 35 00:05 Intake and Output 03/07/19 03/07/19 03/08/19 1515:00 23:00 07:00 IntakeIntake Total 1050 ml BalanceBalance 1050 ml Constitutional: alert, oriented Respiratory: normal air movement Cardiovascular: regular rate and rhythm Gastrointestinal: soft Musculoskeletal: swelling Medications Medication Current Medications Albuterol/ Ipratropium (Duoneb) 3 ml Q4HWA RESP THERAPY NEB Last administered on 03/08/19at 17:20; Admin Dose 3 ML; Start 03/05/19 at 21:00 IV Flush (NS 3 ml) 3 ml PER PROTOCOL IV ; Start 03/05/19 at 18:30 Ondansetron HCl (Zofran Inj) 4 mg Q6H PRN IV NAUSEA/VOMITING; Start 03/05/19 at 18:30 Acetaminophen (Tylenol Tab) 650 mg Q6H PRN PO .PAIN 1-3 OR TEMP; Start 03/05/19 at 18:30 Magnesium Hydroxide (Milk Of Mag) 30 ml DAILY PRN PO .CONSTIPATION; Start 03/05/19 at 18:30 Zolpidem Tartrate (Ambien) 5 mg QHS PRN PO .INSOMNIA; Start 03/05/19 at 18:30 Ascorbic Acid (Vitamin C) 1,000 mg QAM PO Last administered on 03/08/19 09:26; Admin Dose 1,000 MG; Start 03/06/19 at 09:00 Atorvastatin Calcium (Lipitor) 40 mg QHS PO Last administered on 03/07/19 20:09; Admin Dose 40 MG; Start 03/05/19 at 21:00 Benazepril HCl (Lotensin) 10 mg DAILY PO Last administered on 03/08/19 09:26; Admin Dose 10 MG; Start 03/06/19 at 09:00 Metoprolol Succinate (Toprol Xl) 25 mg QHS PO Last administered on 03/07/19 20:10; Admin Dose 25 MG; Start 03/05/19 at 21:00 Montelukast Sodium (Singulair) 10 mg QHS PO Last administered on 03/07/19 20:09; Admin Dose 10 MG; Start 03/05/19 at 21:00 Cholecalciferol (Vitamin D) 4,000 unit DAILY@1200 PO Last administered on 03/08/19 12:40; Admin Dose 4,000 UNIT; Start 03/06/19 at 12:00 Cyanocobalamin (Vitamin B12) 2,000 mcg QAM PO Last administered on 03/08/19 09:25; Admin Dose 2,000 MCG; Start 03/06/19 at 09:00 Mesalamine (Delzicol Dr) 1,200 mg WITH MEALS PO Last administered on 03/08/19 17:54; Admin Dose 1,200 MG; Start 03/06/19 at 09:30 Multivitamins/ Minerals (Theragran-M) 1 tab QAM PO Last administered on 03/08/19 09:26; Admin Dose 1 TAB; Start 03/06/19 at 09:00 Albuterol/ Ipratropium (Duoneb) 3 ml Q4H WHILE AWAKE PRN HHN SHORTNESS OF BREATH Last administered on 03/08/19 01:39; Admin Dose 3 ML; Start 03/06/19 at 05:00 Famotidine (Pepcid) 20 mg BID PO Last administered on 03/08/19at 09:25; Admin Dose 20 MG; Start 03/07/19 at 11:00 Methylprednisolone Sodium Succinate (Solu-Medrol) 40 mg Q8H IV Last administered on 03/08/19at 16:41; Admin Dose 40 MG; Start 03/08/19 at 00:30 Promethazine HCl (Phenergan Liq) 18.75 mg Q6H PRN PO COUGH; Start 03/08/19 at 01:00 NICK NEIL MD Mar 08, 2019 18:24
[2019-03-08] MEDS ORDERED: METHYLPREDNISOLONE (MEDROL) DOSE PACK PO SCH (18:30)
[2019-03-08] MEDS ORDERED: METHYLPREDNISOLONE 4 MG TAB PO SCH (19:00)
[2019-03-08] MEDS: MONTELUKAST 10 MG TAB PO SCH (20:16)
[2019-03-08] MEDS: ATORVASTATIN 40 MG TAB PO SCH (20:16)
[2019-03-08] MEDS: METOPROLOL (XL) 25 MG TAB PO SCH (20:19)
[2019-03-08 20:34] VITALS: BP 109/59; PULSE 63; RESP 16
[2019-03-09] MEDS: METHYLPREDNISOLONE 40 MG INJ IV SCH (00:25)
[2019-03-09] MEDS: ALBUTEROL/IPRATROPIUM (NEB) 3 ML AMP HHN PRN ×2 (00:59→05:28)
[2019-03-09 02:17] VITALS: BP 119/59; PULSE 67; RESP 16
[2019-03-09 08:00] VITALS: BP 136/71; PULSE 68; RESP 20
[2019-03-09] MEDS: METHYLPREDNISOLONE 4 MG TAB PO SCH ×2 (08:52→13:32)
[2019-03-09] MEDS: ASCORBIC ACID 500 MG TAB PO SCH (08:52)
[2019-03-09] MEDS: FAMOTIDINE 20 MG TAB PO SCH ×2 (08:53→21:27)
[2019-03-09] MEDS: BENAZEPRIL 10 MG TAB PO SCH (08:53)
[2019-03-09] MEDS: MESALAMINE (EC) 400 MG CAP PO SCH ×3 (08:53→17:41)
[2019-03-09] MEDS: MULTIVITAMINS/MINERALS TAB PO SCH (08:53)
[2019-03-09] MEDS: CYANOCOBALAMIN 500 MCG TAB PO SCH (08:53)
[2019-03-09] MEDS: ALBUTEROL/IPRATROPIUM (NEB) 3 ML AMP NEB SCH ×4 (09:15→20:53)
--- NOTE | 2019-03-09 10:50 | PN ---
Date/Time of Note Date/Time of Note DATE: 03/09/19 TIME: 10:45 Assessment/Plan VTE [place]axis [place] [facility] [place]: 4 [place] [facility] [place] No SCD contraindicated: low risk/ambulating Pharmacological prophylaxis: heparin Pharm contraindication: low risk/ambulating Lines/Catheters IV [facility]from [facility] Saline Lock Urinary Cath still in place: No Assessment/Plan Problems: (1) COPD (chronic obstructive pulmonary disease) with emphysema Status: Chronic Comment: Patient is still actively in exacerbation. However I did also believe there is a component of fluid retention going on. I concur with the steroids as managed by the pulmonary consultants. Also going to try and work with the his fluid status. Qualifiers: Emphysema type: panlobular Qualified Codes: J43.1 - Panlobular emphysema (2) Smoker Status: Chronic Comment: Re-counseled, again (3) Coronary artery disease Status: Chronic Comment: No active evidence of coronary disease at this time, however I do believe he has some degree of fluid retention/heart failure Qualifiers: Coronary Disease-Associated Artery/Lesion type: [place] artery [place] vs. transplanted heart: [place] heart Associated angina: without angina Qualified Codes: I25.10 - Atherosclerotic heart disease of [place] coronary artery without angina pectoris (4) Bilateral lower extremity edema Status: Acute Comment: 1 dosage of Lasix (5) Hyperlipidemia Status: Chronic Comment: Contains statin therapy Qualifiers: Hyperlipidemia type: pure hypercholesterolemia Qualified Codes: E78.00 - Pure hypercholesterolemia, unspecified (6) Hypertension Status: Chronic Comment: Continue with low-dose cardioselective beta-madina along with DORA inhibitor Qualifiers: Hypertension type: essential hypertension Qualified Codes: I10 - Essential (primary) hypertension (7) B12 deficiency Status: Chronic Comment: On replacement therapy (8) Vitamin D deficiency Status: Chronic Comment: On replacement therapy Result Diagram: 03/07/1951603/07/19516 CC: ARACELI JACK MD; RUFINA ARCE MD; RAVI KNOX MD; KELY SERVIN MD, [facility] ; Subjective 24 Hr Interval Summary Free Text/Dictation Patient reports he feels somewhat better than on admission. He still notes lower extremity edema coughing and overall shortness of breath Constitutional: no complaints (He denies fevers chills or sweats although his apparently still having some fevers) Eyes: no complaints ENT: no complaints (Denies dysphagia or odynophagia) Respiratory: cough, shortness of breath Cardiovascular: no complaints (No chest pain or palpitations. He is having orthopnea and PND), edema, orthopenea Gastrointestinal: no complaints Genitourinary: no complaints Exam/Review of Systems Exam Vitals Vital Signs Date Temp Pulse Resp B/P (MAP) Pulse Ox O2 O2 Flow FiO2 Time Delivery Rate 03/09/19 88 20 94 Nasal 3.0 09:18 Cannula 03/09/19 98.6 136/71 08:00 (92) 03/07/19 35 00:05 Intake and Output 03/08/19 03/08/19 03/09/19 1515:00 23:00 07:00 IntakeIntake Total 800 ml OutputOutput Total 600 ml BalanceBalance 200 ml Constitutional: alert, oriented Neck: supple, non-tender Respiratory: crackles/rales (Bibasilar crackles), diminished breath sounds Cardiovascular: regular rate and rhythm, nl pulses, edema (2+ edema) Medications Medication Current Medications Albuterol/ Ipratropium (Duoneb) 3 ml Q4HWA RESP THERAPY NEB Last administered on 03/09/19at 09:15; Admin Dose 3 ML; Start 03/05/19 at 21:00 IV Flush (NS 3 ml) 3 ml PER PROTOCOL IV ; Start 03/05/19 at 18:30 Ondansetron HCl (Zofran Inj) 4 mg Q6H PRN IV NAUSEA/VOMITING; Start 03/05/19 at 18:30 Acetaminophen (Tylenol Tab) 650 mg Q6H PRN PO .PAIN 1-3 OR TEMP; Start 03/05/19 at 18:30 Magnesium Hydroxide (Milk Of Mag) 30 ml DAILY PRN PO .CONSTIPATION; Start 03/05/19 at 18:30 Zolpidem Tartrate (Ambien) 5 mg QHS PRN PO .INSOMNIA; Start 03/05/19 at 18:30 Ascorbic Acid (Vitamin C) 1,000 mg QAM PO Last administered on 03/09/19at 08:52; Admin Dose 1,000 MG; Start 03/06/19 at 09:00 Atorvastatin Calcium (Lipitor) 40 mg QHS PO Last administered on 03/08/19 20:16; Admin Dose 40 MG; Start 03/05/19 at 21:00 Benazepril HCl (Lotensin) 10 mg DAILY PO Last administered on 03/09/19 08:53; Admin Dose 10 MG; Start 03/06/19 at 09:00 Metoprolol Succinate (Toprol Xl) 25 mg QHS PO Last administered on 03/07/19 20:10; Admin Dose 25 MG; Start 03/05/19 at 21:00 Montelukast Sodium (Singulair) 10 mg QHS PO Last administered on 03/08/19 20:16; Admin Dose 10 MG; Start 03/05/19 at 21:00 Cholecalciferol (Vitamin D) 4,000 unit DAILY@1200 PO Last administered on 03/08/19 12:40; Admin Dose 4,000 UNIT; Start 03/06/19 at 12:00 Cyanocobalamin (Vitamin B12) 2,000 mcg QAM PO Last administered on 03/09/19 08:53; Admin Dose 2,000 MCG; Start 03/06/19 at 09:00 Mesalamine (Delzicol Dr) 1,200 mg WITH MEALS PO Last administered on 03/09/19 08:53; Admin Dose 1,200 MG; Start 03/06/19 at 09:30 Multivitamins/ Minerals (Theragran-M) 1 tab QAM PO Last administered on 03/09/19 08:53; Admin Dose 1 TAB; Start 03/06/19 at 09:00 Albuterol/ Ipratropium (Duoneb) 3 ml Q4H WHILE AWAKE PRN HHN SHORTNESS OF BR EATH Last administered on 03/09/19 05:28; Admin Dose 3 ML; Start 03/06/19 at 05:00 Famotidine (Pepcid) 20 mg BID PO Last administered on 03/09/19 08:53; Admin Dose 20 MG; Start 03/07/19 at 11:00 Promethazine HCl (Phenergan Liq) 18.75 mg Q6H PRN PO COUGH; Start 03/08/19 at 01:00 Methylprednisolone (Medrol) 4 mg AC BREAKFAST PO Last administered on 03/09/19 08:52; Admin Dose 4 MG; Start 03/09/19 at 07:30; Stop 03/13/19 at 07:31 Methylprednisolone (Medrol) 4 mg PC LUNCH PO ; Start 03/09/19 at 13:00; Stop 03/11/19 at 13:01 Methylprednisolone (Medrol) 4 mg PC DINNER PO ; Start 03/09/19 at 19:05; Stop 03/10/19 at 19:06 Methylprednisolone (Medrol) 8 mg HS PO ; Start 03/09/19 at 21:00; Stop 03/09/19 at 21:01 Methylprednisolone (Medrol) 4 mg HS PO ; Start 03/10/19 at 21:00; Stop 03/12/19 at 21:01 CHARLY LYLE MD Mar 09, 2019 10:50
[2019-03-09] MEDS ORDERED: FUROSEMIDE 40 MG TAB PO ONE (11:30)
--- NOTE | 2019-03-09 12:43 | CONS ---
Consult Date/Type/Reason Admit Date/Time Mar 05, 2019 at 17:20 Initial Consult Date Type of Consult Pulmonary Date/Time of Note DATE: 03/09/19 TIME: 12:42 Subjective Patient comfortable no new events respiratory status slowly improving. Objective Vital Signs Date Temp Pulse Resp B/P (MAP) Pulse Ox O2 O2 Flow FiO2 Time Delivery Rate 03/09/19 88 20 94 Nasal 3.0 09:18 Cannula 03/09/19 98.6 136/71 08:00 (92) 03/07/19 35 00:05 Intake and Output 03/08/19 03/08/19 03/09/19 1515:00 23:00 07:00 IntakeIntake Total 800 ml OutputOutput Total 600 ml BalanceBalance 200 ml Exam GENERAL: Well-nourished well-developed gentleman on nasal cannula O2 VITAL SIGNS: per chart NECK: Supple. No JVD or lymphadenopathy. CARDIAC EXAM: S1, S2. No added sounds or murmurs. CHEST: Diminished air entry bilaterally with few rales ABDOMEN: Soft, nontender. No guarding or rebound. EXTREMITIES: No cyanosis, clubbing or edema. NEUROLOGIC: Generalized weakness. No focal deficits. Vent Setting Fraction of Inspired Oxygen pe: 96 Results/Medications Result Diagram: 03/07/19 0503/07/19 05 Medications Current Medications Albuterol/ Ipratropium (Duoneb) 3 ml Q4HWA RESP THERAPY NEB Last administered on 03/09/19at 09:15; Admin Dose 3 ML; Start 03/05/19 at 21:00 IV Flush (NS 3 ml) 3 ml PER PROTOCOL IV ; Start 03/05/19 at 18:30 Ondansetron HCl (Zofran Inj) 4 mg Q6H PRN IV NAUSEA/VOMITING; Start 03/05/19 at 18:30 Acetaminophen (Tylenol Tab) 650 mg Q6H PRN PO .PAIN 1-3 OR TEMP; Start 03/05/19 at 18:30 Magnesium Hydroxide (Milk Of Mag) 30 ml DAILY PRN PO .CONSTIPATION; Start 03/05/19 at 18:30 Zolpidem Tartrate (Ambien) 5 mg QHS PRN PO .INSOMNIA; Start 03/05/19 at 18:30 Ascorbic Acid (Vitamin C) 1,000 mg QAM PO Last administered on 8/9/19at 08:52; Admin Dose 1,000 MG; Start 03/06/19 at 09:00 Atorvastatin Calcium (Lipitor) 40 mg QHS PO Last administered on 03/08/19 20:16; Admin Dose 40 MG; Start 03/05/19 at 21:00 Benazepril HCl (Lotensin) 10 mg DAILY PO Last administered on 03/09/19 08:53; Admin Dose 10 MG; Start 03/06/19 at 09:00 Metoprolol Succinate (Toprol Xl) 25 mg QHS PO Last administered on 03/07/19 20:10; Admin Dose 25 MG; Start 03/05/19 at 21:00 Montelukast Sodium (Singulair) 10 mg QHS PO Last administered on 03/08/19 20:16; Admin Dose 10 MG; Start 03/05/19 at 21:00 Cholecalciferol (Vitamin D) 4,000 unit DAILY@1200 PO Last administered on 03/08/19 12:40; Admin Dose 4,000 UNIT; Start 03/06/19 at 12:00 Cyanocobalamin (Vitamin B12) 2,000 mcg QAM PO Last administered on 03/09/19 08:53; Admin Dose 2,000 MCG; Start 03/06/19 at 09:00 Mesalamine (Delzicol Dr) 1,200 mg WITH MEALS PO Last administered on 03/09/19 11:29; Admin Dose 1,200 MG; Start 03/06/19 at 09:30 Multivitamins/ Minerals (Theragran-M) 1 tab QAM PO Last administered on 03/09/19 08:53; Admin Dose 1 TAB; Start 03/06/19 at 09:00 Albuterol/ Ipratropium (Duoneb) 3 ml Q4H WHILE AWAKE PRN HHN SHORTNESS OF BREAT H Last administered on 03/09/19 05:28; Admin Dose 3 ML; Start 03/06/19 at 05:00 Famotidine (Pepcid) 20 mg BID PO Last administered on 03/09/19 08:53; Admin Dose 20 MG; Start 03/07/19 at 11:00 Promethazine HCl (Phenergan Liq) 18.75 mg Q6H PRN PO COUGH; Start 8/8/19 at 01:00 Methylprednisolone (Medrol) 4 mg AC BREAKFAST PO Last administered on 03/09/19at 08:52; Admin Dose 4 MG; Start 03/09/19 at 07:30; Stop 03/13/19 at 07:31 Methylprednisolone (Medrol) 4 mg PC LUNCH PO ; Start 03/09/19 at 13:00; Stop 03/11/19 at 13:01 Methylprednisolone (Medrol) 4 mg PC DINNER PO ; Start 03/09/19 at 19:05; Stop 03/10/19 at 19:06 Methylprednisolone (Medrol) 8 mg HS PO ; Start 03/09/19 at 21:00; Stop 03/09/19 at 21:01 Methylprednisolone (Medrol) 4 mg HS PO ; Start 03/10/19 at 21:00; Stop 03/12/19 at 21:01 Fluticasone/ Vilanterol (Breo Ellipta 200-25 Mcg Inh) 1 inh DAILY INH ; Start 03/09/19 at 13:30 Tiotropium [place] (Spiriva) 1 inh DAILY INH ; Start 03/09/19 at 13:30 Theophylline (Calvin-24) 200 mg QHS PO ; Start 03/09/19 at 21:00 Assessment/Plan Hospital Course (Demo Recall) IMPRESSION: 1. Likely chronic obstructive pulmonary disease exacerbation. 2. Underlying chronic hypoxemic respiratory failure secondary to chronic obstructive pulmonary disease. 3. Possible polyp in posterior pharynx, MRI noted Plan 1. Incentive spirometry 2. Short steroid taper. Change to IV steroids, will decrease dose 3. Continue bronchodilators 4. Encourage out of bed 5. Encouraged to ambulate KELY SERVIN MD, [facility] Mar 09, 2019 12:43
[2019-03-09] MEDS: CHOLECALCIFEROL 2,000 UNIT CAP PO SCH (13:34)
[2019-03-09 14:00] VITALS: BP_SYST 126; BP_SYST 136; BP_DIAS 67; BP_DIAS 72; PULSE 72; PULSE 86; RESP 18; RESP 20
[2019-03-09] MEDS: FLUTICASONE/VILANTEROL 200-25 INH DEVICE INH SCH (15:50)
[2019-03-09] MEDS: TIOTROPIUM 18 MCG CAPSULE INHA DEV INH SCH (15:52)
--- NOTE | 2019-03-09 18:38 | PDOCDIS ---
Discharge Instructions CONDITION [id number] Patient Condition: [id number] Stable - Patient will require CPAP machine and home O2. HOME CARE INSTRUCTIONS: [id number] Diet Instructions: [id number] Reduced Sodium FOLLOW UP/APPOINTMENTS Follow-up Plan Dr. Pang (financial planning assistant)[address] Brandt (marketing budget analyst)i [address] Vasquez (educational resource center teacher) 2 weeks NICK NEIL MD Mar 09, 2019 18:38
[2019-03-09] MEDS ORDERED: METHYLPREDNISOLONE 4 MG TAB PO SCH ×2 (19:05→21:00)
[2019-03-09 20:00] VITALS: PULSE 107
[2019-03-09] MEDS ORDERED: THEOPHYLLINE (SR) 200 MG CAPSR PO SCH (21:00)
[2019-03-09] MEDS: ATORVASTATIN 40 MG TAB PO SCH (21:26)
[2019-03-09] MEDS: MONTELUKAST 10 MG TAB PO SCH (21:27)
[2019-03-09] MEDS: METOPROLOL (XL) 25 MG TAB PO SCH (21:27)
[2019-03-10] MEDS: ALBUTEROL/IPRATROPIUM (NEB) 3 ML AMP HHN PRN (00:48)
[2019-03-10 08:00] VITALS: BP 111/57; PULSE 65; RESP 19
[2019-03-10] MEDS: TIOTROPIUM 18 MCG CAPSULE INHA DEV INH SCH (08:36)
[2019-03-10] MEDS: FLUTICASONE/VILANTEROL 200-25 INH DEVICE INH SCH (08:38)
[2019-03-10] MEDS: MESALAMINE (EC) 400 MG CAP PO SCH ×2 (08:39→12:32)
[2019-03-10] MEDS: FAMOTIDINE 20 MG TAB PO SCH (08:39)
[2019-03-10] MEDS: METHYLPREDNISOLONE 4 MG TAB PO SCH ×2 (08:39→13:15)
[2019-03-10] MEDS: ASCORBIC ACID 500 MG TAB PO SCH (08:40)
[2019-03-10] MEDS: MULTIVITAMINS/MINERALS TAB PO SCH (08:40)
[2019-03-10] MEDS: CYANOCOBALAMIN 500 MCG TAB PO SCH (08:40)
[2019-03-10] MEDS: ALBUTEROL/IPRATROPIUM (NEB) 3 ML AMP NEB SCH ×2 (08:46→13:30)
[2019-03-10] MEDS: BENAZEPRIL 10 MG TAB PO SCH (08:48)
--- NOTE | 2019-03-10 10:05 | CONS ---
Consult Date/Type/Reason Admit Date/Time Mar 05, 2019 at 17:20 Initial Consult Date Type of Consult Pulmonary Date/Time of Note DATE: 03/10/19 TIME: 10:04 Subjective Patient appears comfortable this morning no respiratory distress. Objective Vital Signs Date Temp Pulse Resp B/P (MAP) Pulse Ox O2 O2 Flow FiO2 Time Delivery Rate 03/10/19 3.0 08:47 03/10/19 97.4 65 19 111/57 96 08:00 (75) 03/10/19 Nasal 00:50 Cannula 03/07/19 35 00:05 Intake and Output 03/09/19 03/09/19 03/10/19 1515:00 23:00 07:00 IntakeIntake Total 700 ml 350 ml BalanceBalance 700 ml 350 ml Exam GENERAL: Well-nourished well-developed gentleman on nasal cannula O2 VITAL SIGNS: per chart NECK: Supple. No JVD or lymphadenopathy. CARDIAC EXAM: S1, S2. No added sounds or murmurs. CHEST: Diminished air entry bilaterally with few rales ABDOMEN: Soft, nontender. No guarding or rebound. EXTREMITIES: No cyanosis, clubbing or edema. NEUROLOGIC: Generalized weakness. No focal deficits. Vent Setting Fraction of Inspired Oxygen pe: 96 Results/Medications Result Diagram: 03/07/1951603/07/19516 Results 24 hrs Laboratory Tests Test 03/09/19 11:56 B-Type Natriuretic Peptide 277 H Medications Current Medications Albuterol/ Ipratropium (Duoneb) 3 ml Q4HWA RESP THERAPY NEB Last administered on 03/10/19at 08:46; Admin Dose 3 ML; Start 03/05/19 at 21:00 IV Flush (NS 3 ml) 3 ml PER PROTOCOL IV ; Start 03/05/19 at 18:30 Ondansetron HCl (Zofran Inj) 4 mg Q6H PRN IV NAUSEA/VOMITING; Start 03/05/19 at 18:30 Acetaminophen (Tylenol Tab) 650 mg Q6H PRN PO .PAIN 1-3 OR TEMP; Start 03/05/19 at 18:30 Magnesium Hydroxide (Milk Of Mag) 30 ml DAILY PRN PO .CONSTIPATION; Start 03/05/19 at 18:30 Zolpidem Tartrate (Ambien) 5 mg QHS PRN PO .INSOMNIA; Start 03/05/19 at 18:30 Ascorbic Acid (Vitamin C) 1,000 mg QAM PO Last administered on 03/10/19 08:40; Admin Dose 1,000 MG; Start 03/06/19 at 09:00 Atorvastatin Calcium (Lipitor) 40 mg QHS PO Last administered on 03/09/19 21:26; Admin Dose 40 MG; Start 03/05/19 at 21:00 Benazepril HCl (Lotensin) 10 mg DAILY PO Last administered on 03/10/19 08:48; Admin Dose 10 MG; Start 03/06/19 at 09:00 Metoprolol Succinate (Toprol Xl) 25 mg QHS PO Last administered on 03/09/19 21:27; Admin Dose 25 MG; Start 03/05/19 at 21:00 Montelukast Sodium (Singulair) 10 mg QHS PO Last administered on 03/09/19 21:27; Admin Dose 10 MG; Start 03/05/19 at 21:00 Cholecalciferol (Vitamin D) 4,000 unit DAILY@1200 PO Last administered on 03/09/19 13:34; Admin Dose 4,000 UNIT; Start 03/06/19 at 12:00 Cyanocobalamin (Vitamin B12) 2,000 mcg QAM PO Last administered on 03/10/19 08:40; Admin Dose 2,000 MCG; Start 03/06/19 at 09:00 Mesalamine (Delzicol Dr) 1,200 mg WITH MEALS PO Last administered on 03/10/19 08:39; Admin Dose 1,200 MG; Start 03/06/19 at 09:30 Multivitamins/ Minerals (Theragran-M) 1 tab QAM PO Last administered on 03/10/19 08:40; Admin Dose 1 TAB; Start 03/06/19 at 09:00 Albuterol/ Ipratropium (Duoneb) 3 ml Q4H WHILE AWAKE PRN HHN SHORTNESS OF BREATH Last administered on 03/10/19 00:48; Admin Dose 3 ML; Start 03/06/19 at 05:00 Famotidine (Pepcid) 20 mg BID PO Last administered on 03/10/19 08:39; Admin Dose 20 MG; Start 03/07/19 at 11:00 Promethazine HCl (Phenergan Liq) 18.75 mg Q6H PRN PO COUGH; Start 03/08/19 at 01:00 Methylprednisolone (Medrol) 4 mg AC BREAKFAST PO Last administered on 03/10/19at 08:39; Admin Dose 4 MG; Start 03/09/19 at 07:30; Stop 03/13/19 at 07:31 Methylprednisolone (Medrol) 4 mg PC LUNCH PO Last administered on 03/09/19at 13:32; Admin Dose 4 MG; Start 03/09/19 at 13:00; Stop 03/11/19 at 13:01 Methylprednisolone (Medrol) 4 mg PC DINNER PO Last administered on 03/09/19at 18:10; Admin Dose 4 MG; Start 03/09/19 at 19:05; Stop 03/10/19 at 19:06 Methylprednisolone (Medrol) 4 mg HS PO ; Start 03/10/19 at 21:00; Stop 03/12/19 at 21:01 Fluticasone/ Vilanterol (Breo Ellipta 200-25 Mcg Inh) 1 inh DAILY INH Last administered on 03/10/19at 08:38; Admin Dose 1 INH; Start 03/09/19 at 13:30 Tiotropium [place] (Spiriva) 1 inh DAILY INH Last administered on 03/10/19at 08:36; Admin Dose 1 INH; Start 03/09/19 at 13:30 Theophylline (Calvin-24) 200 mg QHS PO ; Start 03/09/19 at 21:00 Assessment/Plan Hospital Course (Demo Recall) IMPRESSION: 1. Likely chronic obstructive pulmonary disease exacerbation. 2. Underlying chronic hypoxemic respiratory failure secondary to chronic obstructive pulmonary disease. 3. Possible polyp in posterior pharynx, MRI noted Plan 1. Incentive spirometry 2. Short steroid taper. 3. Continue bronchodilators 4. Encourage out of bed 5. Encouraged to ambulate 6. Outpatient follow-up with pulmonary DC planning okay from pulmonary standpoint KELY SERVIN MD, [facility] Mar 10, 2019 10:05
--- NOTE | 2019-03-10 13:04 | DS ---
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 Procedures MRI Neck with contrast Hx of Present Illness 69 year old man with length history of tobacco use and who currently continues to smoke was sent by microsoft dynamics ax developer to [facility] for admission due to hypoxia. Patient states symptoms began mid January after returned home from a camping trip with an upper respiratory infection. Patient began to notice increased clear sputum production coughing and inability to lie supine do to increased SOB. As a result also unable to use CPAP machine. Patient states that at no time did he have fever.Patient was treated with antibiotics (azithromycin) without improvement. He became increasingly more uncomfortable and went to see Dr. Pang. In the office of the microsoft dynamics ax developer O2 saturations were in the mid to high 80s. Dr. Festus elkins recommended he be admitted for further management. Hospital Course Patient was started on corticosteroids, bronchodilators via nebulizer and empiric antibiotic treatment. Patient's overall respiratory status slowly improved. Patient's respiratory status is not quite back to baseline,but he is stable for discharge.He still is in need of O2 while at rest and will go home on O2 as needed to maintain his saturations above 90% Home Meds Reported Medications Salmeterol Xinaf/Fluticasone* (Advair*) 250-50 Diskus Inhaler, 1 INH INH BID, INH 08/31/14 Mesalamine* (Lialda*) 1.2 G Tablet., 1.2 GM PO QID, TAB 08/31/14 Aspirin* (Aspirin* Chew) 81 Mg Tab.chew, 81 MG PO DAILY, TAB.CHEW 08/31/14 Levalbuterol* (Xopenex* HFA) 15 Gm Inha, 1 PUFFS INH Q8, EA 08/31/14 Amlodipine Besylate* (Amlodipine Besylate*) 2.5 Mg Tablet, 2.5 MG PO DAILY, TAB 08/31/14 Pantoprazole* (Pantoprazole*) 40 Mg Tablet., 40 MG PO DAILY 04/07/12 Simvastatin (Simvastatin) 40 Mg Tablet, 40 MG PO DAILY 04/07/12 Follow-up Plan Dr. Pang (microsoft dynamics ax developer)[address] Brandt (electrical tester)i [address] Vasquez (pompom maker) [address] Care Provider [address]. Vasquez Time spent on discharge: > 30 minutes (35 minutes discussing with patient follow up plan ) Pending Labs Laboratory Tests Test 03/10/19 09:37 Sodium Level 138 mmol/L (135-144) Potassium Level 4.3 mmol/L (3.5-5.1) Chloride Level 91 mmol/L (97-110) Carbon Dioxide Level 42 mmol/L (21-31) Anion Gap 5 (5-13) Blood Urea Nitrogen 31 mg/dl (7-20) Creatinine 0.96 mg/dl (0.61-1.24) Est Glomerular Filtrat Rate mL/min > 60 mL/min (>60) Glucose Level 97 mg/dl (70-220) Calcium Level 9.2 mg/dl (8.4-10.2) NICK NEIL MD Mar 10, 2019 13:04
[2019-03-10] MEDS: CHOLECALCIFEROL 2,000 UNIT CAP PO SCH (13:15)
[2019-03-10 14:00] VITALS: BP 134/75; PULSE 91; RESP 16
[2019-03-10] MEDS ORDERED: METHYLPREDNISOLONE 4 MG TAB PO SCH (21:00)
== END 2019-03-10 14:25 | disposition home or self-care (01) | DRG 190 ==
LOC: E/R 14:36 → MERGE 14:36 → PP2 17:20 → EDBEDREQSVC 17:29
PROVIDERS: ADMIT Internal Medicine; ATTEND Internal Medicine
DX: J44.1 Chronic obstructive pulmonary disease with (acute) exacerbation (principal); J96.21 Acute and chronic respiratory failure with hypoxia; Z72.0 Tobacco use; I10 Essential (primary) hypertension; E78.5 Hyperlipidemia, unspecified; J39.2 Other diseases of pharynx; R60.9 Edema, unspecified; K14.9 Disease of tongue, unspecified; E53.8 Deficiency of other specified B group vitamins; E55.9 Vitamin D deficiency, unspecified
CPT/HCPCS: 36415; 70542; 71045; 80048; 80053; 83605; 83735; 83880; 84100; 84145; 85025; 87070; 94640; 94660; 94664; 96374; J0696; J2920; J2930; J3370; J7040; J7509; J7512